=== PATIENT | female | born 1950 | race Two or more races ===

== ENCOUNTER 2023-05-20 06:14 | Inpatient (IN) | payer MEDICARE, MEDICAID ==
[~2023-05-20] VITALS: Ht 162.6 cm; Wt 86.2 kg
[2023-05-20 07:33] LABS: COVID19 ANTIGEN SOFIA FIA NEGATIVE (NEGATIVE)
[2023-05-20 07:34] LABS: Rapid Influenza A Negative (Negative); Rapid Influenza B Negative (Negative)
[2023-05-20 07:37] LABS: Basophils # (auto) 0.1 10 ^3/uL (0-0.2); Basophils % (auto) 0.7 % (0.0-2.0); Eosinophils # (auto) 0.2 10 ^3/uL (0-0.8); Eosinophils % (auto) 1.4 % (0.0-7.0); Hematocrit 35.8 % (36.0-46.0); Hemoglobin 11.8 g/dL (12.2-16.2); Lymphocytes # (auto) 2.1 10 ^3/uL (0.4-5.4); Lymphocytes % (auto) 17.1 % (10.0-50.0); Mean Corpuscular Hemoglobin 26.2 pg (28.0-32.0); Mean Corpuscular Hgb Conc. 32.9 g/dL (32.0-36.0); Mean Corpuscular Volume 79.8 fL (80.0-100.0); Monocytes # (auto) 0.5 10 ^3/uL (0-1.3); Monocytes % (auto) 4.3 % (0.0-12.0); Neutrophils # (auto) 9.5 10 ^3/uL (1.6-8.6); Neutrophils % (auto) 76.5 % (37.0-80.0); Red Blood Cells 4.49 10^6/uL (4.0-5.20); Red Cell Distribution Width 13.5 % (11.8-14.3); White Blood Cell 12.5 10^3/uL (4.4-10.8)
[2023-05-20 07:59] LABS: Alanine Aminotransferase 25 U/L (7-40); Albumin 4.8 g/dL (3.2-4.8); Alkaline Phosphatase 71 U/L (46-116); Anion Gap 7.7 (5-15); Aspartate Aminotransferase 15 U/L (13-40); BUN/Creatinine Ratio 12.3 (10.0-20.0); Blood Urea Nitrogen 17 mg/dL (9-23); Carbon Dioxide 23.3 mmol/L (20-30); Chloride 94 mmol/L (98-107); Glucose 136 mg/dL (74-106); Potassium 4.9 mmol/L (3.5-5.1); Sodium 125 mmol/L (136-145)
[2023-05-20 08:00] LABS: Bilirubin, Total 0.4 mg/dL (0.2-1.0); Total Protein 7.7 g/dL (5.7-8.2)
[2023-05-20 12:53] LABS: Urine Bacteria FEW /hpf (None Seen); Urine Blood Negative /uL (Negative); Urine Clarity Clear (Clear); Urine Hyaline Cast FEW /lpf (0 - 2); Urine Protein, UAD TRACE (Negative); Urine Specific Gravity 1.015 (1.001-1.035); Urine Urobilinogen Normal (Negative); Urine WBC 6 /hpf (0 - 5); Urine pH 5.5 (5.0-8.0)
[2023-05-20 12:58] LABS: Urine Color Yellow (Yellow)
[2023-05-20 13:06] VITALS: PULSE 94; RESP 30; O2SAT 94
[2023-05-20] MEDS ORDERED: PIPERACILLIN-TAZO 4.5GM 100 ML IV ONE (13:15)
[2023-05-20] MEDS ORDERED: VANCOMYCIN 1GM/250ML 250 ML IV ONE (13:15)
[2023-05-20] MEDS ORDERED: levoFLOXacin 750MG 150 ML IV ONE (13:30)
[2023-05-20] MEDS ORDERED: SODIUM CHLORIDE 0.9% 2,450 ML IV ONE (13:30)
[2023-05-20] MEDS ORDERED: ACETAMINOPHEN 325 MG TAB PO ONE (13:30)
[2023-05-20] MEDS ORDERED: VANCOMYCIN PER PHARMACY 0 MG IV SCH (13:45)
[2023-05-20] MEDS: SODIUM CHLORIDE 0.9% 1,000 ML IV SCH ×2 (14:15→22:51)
[2023-05-20] MEDS ORDERED: DOCUSATE SOD 100 MG CAP PO PRN (14:15)
[2023-05-20] MEDS ORDERED: DEXTROSE (50%) 50ML SYRG IV PRN (14:15)
[2023-05-20 14:47] LABS: Creatinine, Urine 77.28 mg/dL (30.0-125.0)
[2023-05-20] MEDS ORDERED: SERT-206 PO (15:35)
[2023-05-20] MEDS ORDERED: LORA-1105 PO (15:35)
[2023-05-20] MEDS ORDERED: HYDR50TA69 PO (15:35)
[2023-05-20 15:36] LABS: INR 3.45 (0.9-1.15); Partial Thromboplastin Time 44.9 SEC (24.5-34.5); Prothrombin Time 33.4 sec (9.3-11.8)
[2023-05-20] MEDS: InsuLIN REG 1unit/0.01ml Soln (100units/ml) SC SCH (18:00)
[2023-05-20] MEDS: ACCU-CHEK COMFORT CURVE STRIP VI SCH (18:00)
[2023-05-20] MEDS ORDERED: MEMA1CAP4 PO (20:16)
[2023-05-20] MEDS ORDERED: HYDR50TA32 PO (20:17)
[2023-05-20 21:01] VITALS: PULSE 95; RESP 22; O2SAT 95
[2023-05-20] MEDS: ONDANSETRON HCL 4 MG/2 ML VIAL IV PRN (23:35)
[2023-05-20] MEDS: MORPHINE SULFATE INJ 2 MG/ml SYRG IV PRN ×2 (23:36→23:44)
[2023-05-21] MEDS: ACCU-CHEK COMFORT CURVE STRIP VI SCH ×4 (00:26→21:16)
[2023-05-21] MEDS: InsuLIN REG 1unit/0.01ml Soln (100units/ml) SC SCH ×4 (00:29→21:32)
[2023-05-21 06:28] LABS: Eosinophils # (auto) 0.1 10 ^3/uL (0-0.8); Mean Corpuscular Hgb Conc. 32.1 g/dL (32.0-36.0); Monocytes # (auto) 0.5 10 ^3/uL (0-1.3)
[2023-05-21 06:29] LABS: Basophils # (auto) 0.1 10 ^3/uL (0-0.2); Basophils % (auto) 0.5 % (0.0-2.0); Eosinophils % (auto) 1.1 % (0.0-7.0); Hematocrit 32.5 % (36.0-46.0); Hemoglobin 10.4 g/dL (12.2-16.2); Lymphocytes # (auto) 1.3 10 ^3/uL (0.4-5.4); Lymphocytes % (auto) 12.6 % (10.0-50.0); Mean Corpuscular Hemoglobin 26.8 pg (28.0-32.0); Mean Corpuscular Volume 83.6 fL (80.0-100.0); Monocytes % (auto) 4.4 % (0.0-12.0); Neutrophils # (auto) 8.5 10 ^3/uL (1.6-8.6); Neutrophils % (auto) 81.4 % (37.0-80.0); Red Blood Cells 3.89 10^6/uL (4.0-5.20); Red Cell Distribution Width 14.1 % (11.8-14.3); White Blood Cell 10.4 10^3/uL (4.4-10.8)
[2023-05-21 06:40] LABS: INR 2.26 (0.9-1.15); Prothrombin Time 22.5 sec (9.3-11.8)
[2023-05-21 06:56] LABS: Alanine Aminotransferase 24 U/L (7-40); Albumin 3.9 g/dL (3.2-4.8); Alkaline Phosphatase 62 U/L (46-116); Anion Gap 6.6 (5-15); Aspartate Aminotransferase 23 U/L (13-40); BUN/Creatinine Ratio 5.5 (10.0-20.0); Calcium 8.9 mg/dL (8.7-10.4); Carbon Dioxide 18.4 mmol/L (20-30); Chloride 104 mmol/L (98-107); Glucose 151 mg/dL (74-106); Potassium 4.7 mmol/L (3.5-5.1); Sodium 129 mmol/L (136-145)
[2023-05-21 06:57] LABS: Bilirubin, Total 0.4 mg/dL (0.2-1.0); Total Protein 6.6 g/dL (5.7-8.2)
[2023-05-21 07:00] LABS: Blood Urea Nitrogen 6 mg/dL (9-23)
[2023-05-21] MEDS: SODIUM CHLORIDE 0.9% 1,000 ML IV SCH ×3 (07:02→21:16)
[2023-05-21 08:30] VITALS: PULSE 87; RESP 18; O2SAT 94
[2023-05-21] MEDS ORDERED: MEMA1CAP4 PO (09:00)
[2023-05-21] MEDS ORDERED: FLUT110A INH (09:00)
[2023-05-21] MEDS ORDERED: LORA2TAB89 PO (09:00)
[2023-05-21] MEDS ORDERED: SERT-160 PO (09:00)
[2023-05-21] MEDS ORDERED: ALBUAER3 IN (09:00)
[2023-05-21] MEDS ORDERED: DICY10CA PO (09:00)
[2023-05-21] MEDS ORDERED: ARIP1TAB7 PO (09:00)
[2023-05-21] MEDS ORDERED: FURO1TAB33 PO (09:00)
[2023-05-21] MEDS ORDERED: LORA-622 PO (09:00)
[2023-05-21] MEDS ORDERED: POTA10TA51 PO (09:00)
[2023-05-21] MEDS ORDERED: DEXL60CA4 PO (09:00)
[2023-05-21] MEDS ORDERED: HYDR50TA69 PO (09:00)
[2023-05-21] MEDS ORDERED: CALCIUM PO (09:00)
[2023-05-21] MEDS ORDERED: IRONTAB35 PO (09:00)
[2023-05-21] MEDS ORDERED: LEVO75TA6 PO (09:00)
[2023-05-21] MEDS ORDERED: PRAV20TA3 PO (09:00)
[2023-05-21] MEDS: levoFLOXacin 500MG 100 ML IV SCH (10:38)
[2023-05-21] MEDS: VANCOMYCIN 1GM/250ML 250 ML IV SCH (14:06)
[2023-05-21] MEDS ORDERED: WARFARIN SODIUM 2 MG TAB PO ONE (17:00)
[2023-05-21 20:15] VITALS: PULSE 102; RESP 20; O2SAT 95
[2023-05-21] MEDS: hydrOXYzine 25 MG TAB or CAP PO SCH (21:16)
[2023-05-21] MEDS: LORazepam 0.5 MG TAB PO SCH (21:17)
[2023-05-21] MEDS: SERTRALINE HCL 50 MG TAB PO SCH (21:17)
[2023-05-21] MEDS ORDERED: PATIENTS OWN MEDICATION (Hydroxyzine Hcl 1 TAB) PO SCH (22:00)
[2023-05-22 04:35] LABS: Basophils # (auto) 0.1 10 ^3/uL (0-0.2); Basophils % (auto) 0.7 % (0.0-2.0); Monocytes # (auto) 0.6 10 ^3/uL (0-1.3)
[2023-05-22 04:37] LABS: Eosinophils # (auto) 0.1 10 ^3/uL (0-0.8); Eosinophils % (auto) 1.2 % (0.0-7.0); Hematocrit 30.6 % (36.0-46.0); Hemoglobin 10.3 g/dL (12.2-16.2); Lymphocytes # (auto) 1.2 10 ^3/uL (0.4-5.4); Lymphocytes % (auto) 11.2 % (10.0-50.0); Mean Corpuscular Hemoglobin 27.2 pg (28.0-32.0); Mean Corpuscular Hgb Conc. 33.6 g/dL (32.0-36.0); Monocytes % (auto) 5.9 % (0.0-12.0); Neutrophils # (auto) 8.4 10 ^3/uL (1.6-8.6); Red Blood Cells 3.78 10^6/uL (4.0-5.20); Red Cell Distribution Width 13.8 % (11.8-14.3); White Blood Cell 10.4 10^3/uL (4.4-10.8)
[2023-05-22] MEDS: SODIUM CHLORIDE 0.9% 1,000 ML IV SCH ×4 (04:38→21:20)
[2023-05-22 04:53] LABS: Alanine Aminotransferase 88 U/L (7-40); Alkaline Phosphatase 75 U/L (46-116); Anion Gap 7.5 (5-15); Aspartate Aminotransferase 48 U/L (13-40); BUN/Creatinine Ratio 7.5 (10.0-20.0); Bilirubin, Total 0.4 mg/dL (0.2-1.0); Blood Urea Nitrogen 8 mg/dL (9-23); Calcium 8.7 mg/dL (8.5-10.1); Carbon Dioxide 21.5 mmol/L (20-30); Chloride 106 mmol/L (98-107); Glucose 156 mg/dL (74-106)
[2023-05-22 04:54] LABS: Total Protein 6.3 g/dL (5.7-8.2)
[2023-05-22 04:58] LABS: INR 2.91 (0.9-1.15); Partial Thromboplastin Time 43.1 SEC (24.5-34.5); Prothrombin Time 28.5 sec (9.3-11.8)
[2023-05-22 05:03] LABS: Sodium 135 mmol/L (136-145)
[2023-05-22] MEDS ORDERED: ACETAMINOPHEN 650 MG RECT SUPP PR ONE (05:30)
[2023-05-22] MEDS: LORazepam 0.5 MG TAB PO SCH ×2 (05:31→14:26)
[2023-05-22] MEDS: ACCU-CHEK COMFORT CURVE STRIP VI SCH ×4 (05:32→18:02)
[2023-05-22] MEDS: hydrOXYzine 25 MG TAB or CAP PO SCH ×2 (05:45→14:26)
[2023-05-22] MEDS: MORPHINE SULFATE INJ 2 MG/ml SYRG IV PRN ×2 (05:46→13:02)
[2023-05-22] MEDS: InsuLIN REG 1unit/0.01ml Soln (100units/ml) SC SCH ×4 (05:54→18:00)
[2023-05-22 08:26] VITALS: PULSE 95; RESP 18; O2SAT 98
[2023-05-22] MEDS: levoFLOXacin 500MG 100 ML IV SCH (09:25)
[2023-05-22] MEDS: BENAZEPRIL HCL 10 MG TAB PO SCH (10:11)
[2023-05-22] MEDS: FUROSEMIDE 20 MG TAB PO SCH (10:11)
[2023-05-22] MEDS: PRAVASTATIN SODIUM 20 MG TAB PO SCH (10:12)
[2023-05-22] MEDS: LEVOTHYROXINE SODIUM 50 MCG TAB PO SCH (10:12)
[2023-05-22] MEDS: SERTRALINE HCL 50 MG TAB PO SCH (10:18)
[2023-05-22] MEDS: ARIPIPRAZOLE 10 MG PO SCH (10:20)
[2023-05-22] MEDS: MEMANTINE HCL DONEPEZIL HCL PO SCH (10:21)
[2023-05-22] MEDS: VANCOMYCIN 1GM/250ML 250 ML IV SCH (10:26)
[2023-05-22] MEDS ORDERED: ACETAMINOPHEN 325 MG TAB PO ONE (15:22)
[2023-05-22] MEDS: ACETAMINOPHEN 325 MG TAB PO PRN ×2 (15:47→21:42)
[2023-05-22] MEDS ORDERED: WARFARIN SODIUM 1 MG TAB PO ONE (16:00)
[2023-05-23] VITALS (7 sets, daily range): BP systolic 111–147; BP diastolic 59–72; PULSE 84–97; RESP 17–20; TEMP 97.9–99.5; O2SAT 95–99
[2023-05-23] MEDS: ACCU-CHEK COMFORT CURVE STRIP VI SCH ×4 (01:57→17:09)
[2023-05-23] MEDS: InsuLIN REG 1unit/0.01ml Soln (100units/ml) SC SCH ×4 (01:58→17:09)
[2023-05-23] MEDS: SERTRALINE HCL 50 MG TAB PO SCH ×3 (02:16→21:58)
[2023-05-23] MEDS: LORazepam 0.5 MG TAB PO SCH ×4 (02:18→21:57)
[2023-05-23] MEDS: hydrOXYzine 25 MG TAB or CAP PO SCH ×4 (02:33→22:00)
[2023-05-23] MEDS: SODIUM CHLORIDE 0.9% 1,000 ML IV SCH ×2 (03:19→04:19)
[2023-05-23 07:05] LABS: Basophils # (auto) 0.1 10 ^3/uL (0-0.2); Eosinophils # (auto) 0.3 10 ^3/uL (0-0.8); Lymphocytes # (auto) 1.4 10 ^3/uL (0.4-5.4); Lymphocytes % (auto) 17.4 % (10.0-50.0); Neutrophils # (auto) 5.7 10 ^3/uL (1.6-8.6); Red Cell Distribution Width 13.8 % (11.8-14.3); White Blood Cell 7.9 10^3/uL (4.4-10.8)
[2023-05-23 07:07] LABS: Basophils % (auto) 1.2 % (0.0-2.0); Eosinophils % (auto) 3.8 % (0.0-7.0); Hematocrit 30.1 % (36.0-46.0); Hemoglobin 9.7 g/dL (12.2-16.2); Mean Corpuscular Hemoglobin 26.4 pg (28.0-32.0); Mean Corpuscular Hgb Conc. 32.3 g/dL (32.0-36.0); Mean Corpuscular Volume 81.6 fL (80.0-100.0); Monocytes # (auto) 0.4 10 ^3/uL (0-1.3); Monocytes % (auto) 5.7 % (0.0-12.0); Neutrophils % (auto) 71.9 % (37.0-80.0); Red Blood Cells 3.68 10^6/uL (4.0-5.20)
[2023-05-23 07:21] LABS: Partial Thromboplastin Time 44.7 SEC (24.5-34.5); Prothrombin Time 29.3 sec (9.3-11.8)
[2023-05-23] MEDS: ARIPIPRAZOLE 10 MG PO SCH (10:00)
[2023-05-23] MEDS: MEMANTINE HCL DONEPEZIL HCL PO SCH (10:00)
[2023-05-23] MEDS: PRAVASTATIN SODIUM 20 MG TAB PO SCH (10:39)
[2023-05-23] MEDS: FUROSEMIDE 20 MG TAB PO SCH (10:43)
[2023-05-23] MEDS: LEVOTHYROXINE SODIUM 50 MCG TAB PO SCH (10:43)
[2023-05-23] MEDS: BENAZEPRIL HCL 10 MG TAB PO SCH (10:44)
[2023-05-23] MEDS: levoFLOXacin 500MG 100 ML IV SCH (10:49)
[2023-05-23] MEDS: VANCOMYCIN 1GM/250ML 250 ML IV SCH (10:50)
[2023-05-23] MEDS ORDERED: WARF4TAB69 PO (11:38)
[2023-05-23] MEDS ORDERED: WARF-112 PO (11:38)
[2023-05-23] MEDS ORDERED: GLIP10TA9 PO (11:40)
[2023-05-23] MEDS ORDERED: SITA100T7 PO (11:40)
[2023-05-23] MEDS ORDERED: BENA40TA70 PO (11:40)
[2023-05-23] MEDS ORDERED: METF-371 PO (11:40)
[2023-05-23] MEDS ORDERED: PANTOPRAZOLE 40 MG TAB PO ONE (12:45)
[2023-05-23] MEDS: MORPHINE SULFATE INJ 2 MG/ml SYRG IV PRN (14:44)
[2023-05-23] MEDS: ACETAMINOPHEN 325 MG TAB PO PRN (16:05)
[2023-05-23] MEDS: PANTOPRAZOLE 40 MG TAB PO SCH (21:57)
[2023-05-24] VITALS (7 sets, daily range): BP systolic 110–157; BP diastolic 52–72; PULSE 52–93; RESP 10–20; TEMP 98.3–99.7; O2SAT 91–100
[2023-05-24] MEDS: InsuLIN REG 1unit/0.01ml Soln (100units/ml) SC SCH ×5 (01:41→23:57)
[2023-05-24] MEDS: ACCU-CHEK COMFORT CURVE STRIP VI SCH ×5 (01:41→23:54)
[2023-05-24] MEDS: hydrOXYzine 25 MG TAB or CAP PO SCH ×3 (05:50→21:19)
[2023-05-24] MEDS: LORazepam 0.5 MG TAB PO SCH ×3 (05:50→21:17)
[2023-05-24 07:12] LABS: INR 1.96 (0.9-1.15); Partial Thromboplastin Time 41.3 SEC (24.5-34.5); Prothrombin Time 19.7 sec (9.3-11.8)
[2023-05-24 07:17] LABS: Basophils # (auto) 0.1 10 ^3/uL (0-0.2); Basophils % (auto) 0.8 % (0.0-2.0); Eosinophils # (auto) 0.3 10 ^3/uL (0-0.8); Eosinophils % (auto) 3.5 % (0.0-7.0); Hematocrit 30.9 % (36.0-46.0); Hemoglobin 10.1 g/dL (12.2-16.2); Lymphocytes # (auto) 1.3 10 ^3/uL (0.4-5.4); Lymphocytes % (auto) 13.4 % (10.0-50.0); Mean Corpuscular Hemoglobin 25.9 pg (28.0-32.0); Mean Corpuscular Hgb Conc. 32.6 g/dL (32.0-36.0); Mean Corpuscular Volume 79.5 fL (80.0-100.0); Monocytes # (auto) 0.6 10 ^3/uL (0-1.3); Monocytes % (auto) 5.9 % (0.0-12.0); Neutrophils # (auto) 7.4 10 ^3/uL (1.6-8.6); Neutrophils % (auto) 76.4 % (37.0-80.0); Red Blood Cells 3.89 10^6/uL (4.0-5.20); Red Cell Distribution Width 13.4 % (11.8-14.3); White Blood Cell 9.7 10^3/uL (4.4-10.8)
[2023-05-24] MEDS: BENAZEPRIL HCL 10 MG TAB PO SCH (08:57)
[2023-05-24] MEDS: ACETAMINOPHEN 325 MG TAB PO PRN ×2 (08:57→17:20)
[2023-05-24] MEDS: SERTRALINE HCL 50 MG TAB PO SCH ×2 (08:58→21:17)
[2023-05-24] MEDS: LEVOTHYROXINE SODIUM 50 MCG TAB PO SCH (08:58)
[2023-05-24] MEDS: PRAVASTATIN SODIUM 20 MG TAB PO SCH (08:58)
[2023-05-24] MEDS: PANTOPRAZOLE 40 MG TAB PO SCH ×2 (08:58→21:18)
[2023-05-24] MEDS: MEMANTINE HCL DONEPEZIL HCL PO SCH (08:59)
[2023-05-24] MEDS: ARIPIPRAZOLE 10 MG PO SCH (08:59)
[2023-05-24] MEDS: FUROSEMIDE 20 MG TAB PO SCH (08:59)
[2023-05-24] MEDS: SODIUM CHLORIDE 0.9% 1,000 ML IV SCH ×2 (09:09→18:33)
[2023-05-24] MEDS: levoFLOXacin 500MG 100 ML IV SCH (09:10)
[2023-05-24] MEDS ORDERED: WARFARIN SODIUM 2 MG TAB PO ONE (17:00)
[2023-05-24] MEDS ORDERED: CIPROFLOXACIN HCL 500 MG TAB PO SCH (22:00)
[2023-05-25 05:00] VITALS: BP 147/66; PULSE 90; RESP 18; TEMP 98.8; O2SAT 98
[2023-05-25] MEDS: ACETAMINOPHEN 325 MG TAB PO PRN ×2 (06:29→12:56)
[2023-05-25] MEDS: hydrOXYzine 25 MG TAB or CAP PO SCH ×2 (06:29→15:22)
[2023-05-25] MEDS: SODIUM CHLORIDE 0.9% 1,000 ML IV SCH ×3 (06:29→16:00)
[2023-05-25] MEDS: LORazepam 0.5 MG TAB PO SCH ×2 (06:30→15:23)
[2023-05-25] MEDS: ACCU-CHEK COMFORT CURVE STRIP VI SCH ×2 (06:30→12:56)
[2023-05-25] MEDS: InsuLIN REG 1unit/0.01ml Soln (100units/ml) SC SCH ×2 (06:38→12:56)
[2023-05-25 07:04] LABS: INR 1.49 (0.9-1.15); Partial Thromboplastin Time 36.2 SEC (24.5-34.5); Prothrombin Time 15.2 sec (9.3-11.8)
[2023-05-25 08:00] VITALS: BP 155/60; PULSE 84; PULSE 87; RESP 18; TEMP 98.3; O2SAT 97
[2023-05-25] MEDS: PRAVASTATIN SODIUM 20 MG TAB PO SCH (09:00)
[2023-05-25] MEDS: MEMANTINE HCL DONEPEZIL HCL PO SCH (09:00)
[2023-05-25] MEDS: ARIPIPRAZOLE 10 MG PO SCH (09:00)
[2023-05-25] MEDS: SERTRALINE HCL 50 MG TAB PO SCH (09:01)
[2023-05-25] MEDS: BENAZEPRIL HCL 10 MG TAB PO SCH (09:01)
[2023-05-25] MEDS: PANTOPRAZOLE 40 MG TAB PO SCH (09:01)
[2023-05-25] MEDS: FUROSEMIDE 20 MG TAB PO SCH (09:02)
[2023-05-25] MEDS: LEVOTHYROXINE SODIUM 50 MCG TAB PO SCH (09:02)
[2023-05-25] MEDS ORDERED: levoFLOXacin 500MG 100 ML IV SCH (10:00)
[2023-05-25] MEDS: ONDANSETRON HCL 4 MG/2 ML VIAL IV PRN (10:43)
[2023-05-25 12:00] VITALS: BP 142/61; PULSE 86; RESP 18; TEMP 98.8; O2SAT 96
[2023-05-25 12:10] LABS: COVID19 ANTIGEN SOFIA FIA NEGATIVE (NEGATIVE)
[2023-05-25 15:53] VITALS: BP 143/67; PULSE 93; RESP 18; TEMP 98.3; O2SAT 97
[2023-05-25 16:00] VITALS: BP 143/67; PULSE 93; RESP 18; TEMP 98.3; O2SAT 97
[2023-05-25] MEDS ORDERED: WARFARIN SODIUM 2 MG TAB PO ONE (17:00)
== END 2023-05-25 17:35 | DRG 871 ==
LOC: EDUNIT# 06:14 → EDBD 06:14 → ER 06:14 → TELE 14:18 → TELE-CENTR 05-23 10:14
PROVIDERS: ADMIT Nurse Practitioner Family; ATTEND Family Medicine
DX: A41.9 Sepsis, unspecified organism (principal); E43 Unspecified severe protein-calorie malnutrition; G93.41 Metabolic encephalopathy; N17.0 Acute kidney failure with tubular necrosis; E87.21 Acute metabolic acidosis; E87.1 Hypo-osmolality and hyponatremia; N39.0 Urinary tract infection, site not specified; D64.9 Anemia, unspecified; Z20.822 Contact with and (suspected) exposure to COVID-19; Z96.659 Presence of unspecified artificial knee joint; F03.90 Unspecified dementia, unspecified severity, without behavioral disturbance, psychotic disturbance, mood disturbance, and anxiety; E03.9 Hypothyroidism, unspecified; I10 Essential (primary) hypertension; E11.9 Type 2 diabetes mellitus without complications; E78.5 Hyperlipidemia, unspecified; J45.909 Unspecified asthma, uncomplicated; G89.29 Other chronic pain; Z79.01 Long term (current) use of anticoagulants; Z86.711 Personal history of pulmonary embolism; Z88.0 Allergy status to penicillin; Z88.3 Allergy status to other anti-infective agents; Z90.710 Acquired absence of both cervix and uterus; Z68.32 Body mass index [BMI] 32.0-32.9, adult
CPT/HCPCS: 36415; 70450; 71045; 72131; 74176; 80053; 80202; 81001; 82570; 82962; 83605; 83880; 83930; 83935; 84300; 84443; 84484; 85025; 85610; 85730; 87040; 87086; 87426; 87804; 96365; 97163; 99291; G0378; J1815; J1956; J2405

== ENCOUNTER 2023-10-06 07:38 | Inpatient (IN) | payer MEDICARE, MEDICAID ==
[~2023-10-06] VITALS: Ht 160 cm; Wt 75.0 kg
[~2023-10-06 07:38] MED LIST: ALBUAER3 IN; ARIP1TAB7 PO; BENA40TA70 PO; CALCIUM PO; DEXL60CA4 PO; DICY10CA PO; FLUT110A INH; FURO1TAB33 PO; GLIP10TA9 PO; HYDR50TA32 PO; HYDR50TA69 PO; IRONTAB35 PO; LEVO75TA6 PO; LORA-1105 PO; LORA-622 PO; LORA2TAB89 PO; MEMA1CAP4 PO; METF-371 PO; POTA10TA51 PO; PRAV20TA3 PO; SERT-160 PO; SERT-206 PO; SITA100T7 PO; WARF-112 PO; WARF4TAB69 PO
[2023-10-06 08:13] LABS: Basophils # (auto) 0 10 ^3/uL (0-0.2); Basophils % (auto) 0.3 % (0.0-2.0); Eosinophils # (auto) 0 10 ^3/uL (0-0.8); Lymphocytes # (auto) 1.1 10 ^3/uL (0.4-5.4); White Blood Cell 6.2 10^3/uL (4.4-10.8)
[2023-10-06 08:15] LABS: Eosinophils % (auto) 0.4 % (0.0-7.0); Hematocrit 27.6 % (36.0-46.0); Lymphocytes % (auto) 17.2 % (10.0-50.0); Mean Corpuscular Hemoglobin 26.7 pg (28.0-32.0); Mean Corpuscular Hgb Conc. 32.5 g/dL (32.0-36.0); Mean Corpuscular Volume 82.3 fL (80.0-100.0); Monocytes # (auto) 0.4 10 ^3/uL (0-1.3); Monocytes % (auto) 5.8 % (0.0-12.0); Neutrophils # (auto) 4.7 10 ^3/uL (1.6-8.6); Neutrophils % (auto) 76.3 % (37.0-80.0); Red Blood Cells 3.36 10^6/uL (4.0-5.20); Red Cell Distribution Width 17.1 % (11.8-14.3)
[2023-10-06 08:36] LABS: Anion Gap 6 (5-15); Calcium 9.4 mg/dL (8.5-10.1); Carbon Dioxide 27 mmol/L (20-30); Chloride 102 mmol/L (98-107); Sodium 135 mmol/L (136-145)
[2023-10-06 08:41] LABS: BUN/Creatinine Ratio 23.4 (10.0-20.0); Blood Urea Nitrogen 41 mg/dL (9-23); Glucose 73 mg/dL (74-106)
[2023-10-06 09:07] LABS: Urine Bacteria FEW /hpf (None Seen); Urine Blood Negative /uL (Negative); Urine Clarity Clear (Clear); Urine Color Colorless (Yellow); Urine Protein, UAD Negative (Negative); Urine Specific Gravity 1.008 (1.001-1.035); Urine Urobilinogen Normal (Negative); Urine WBC 4 /hpf (0 - 5); Urine pH 5.5 (5.0-8.0)
[2023-10-06] MEDS ORDERED: DEXTROSE 50% SYRINGE 50 ML IV ONE (09:12)
[2023-10-06] MEDS ORDERED: DEXTROSE 10% 1,000 ML IV ONE ×2 (09:15→11:00)
[2023-10-06] MEDS ORDERED: DEXTROSE (50%) 50ML SYRG IV ONE (09:15)
[2023-10-06 09:22] VITALS: PULSE 79; RESP 21; O2SAT 94
[2023-10-06] MEDS ORDERED: NITROGLYCERIN 0.4 MG SL TAB SL PRN (10:45)
[2023-10-06] MEDS ORDERED: ACETAMINOPHEN 325 MG TAB PO PRN (10:45)
[2023-10-06] MEDS ORDERED: MORPHINE SULFATE INJ 2 MG/ml SYRG IV PRN (10:45)
[2023-10-06] MEDS ORDERED: cefTRIAXone 1GM/50ML D5W 50 ML IV ONE (11:00)
[2023-10-06] MEDS ORDERED: DEXTROSE 10% 1,000 ML IV SCH (11:00)
[2023-10-06] MEDS ORDERED: SODIUM CHLORIDE 0.9% 1,000 ML IV ONE (11:00)
[2023-10-06] MEDS ORDERED: ALBUTEROL SULF 2.5 MG/0.5ML(0.5%) NEB SOLN NEB PRN (11:15)
[2023-10-06 12:40] LABS: Protein, Urine 19.1 mg/dL (0.0-11.9)
[2023-10-06 12:43] LABS: Creatinine, Urine 38.6 mg/dL (30.0-125.0)
[2023-10-06 12:44] LABS: Platelet Estimate Adequate
[2023-10-06 12:52] LABS: Prothrombin Time 43.9 sec (9.3-11.8)
[2023-10-06 12:54] LABS: INR 4.62 (0.9-1.15)
[2023-10-06 13:08] LABS: Triglycerides 75 mg/dL (< 150)
[2023-10-06 13:09] LABS: LDL Cholesterol 49 mg/dL (< 100)
[2023-10-06 13:10] LABS: Cholesterol 121 mg/dL (< 200); HDL Cholesterol 46 mg/dL (40-59)
[2023-10-06 14:00] VITALS: BP 115/58; PULSE 82; RESP 18; TEMP 98.6; O2SAT 97
[2023-10-06 16:28] VITALS: PULSE 70; RESP 19; O2SAT 97
[2023-10-06 17:00] VITALS: BP 139/50; PULSE 85; RESP 22; TEMP 98.8; O2SAT 96
[2023-10-06] MEDS ORDERED: DEXTROSE (50%) 50ML SYRG IV PRN (17:15)
[2023-10-06] MEDS: SOD CHL 0.45% 1,000 ML IV SCH (18:30)
[2023-10-06] MEDS: ACCU-CHEK COMFORT CURVE STRIP VI SCH (19:54)
[2023-10-06 20:00] VITALS: PULSE 86; PULSE 87; RESP 20; O2SAT 96
[2023-10-06] MEDS: InsuLIN REG 1unit/0.01ml Soln (100units/ml) SC SCH (20:01)
[2023-10-06 22:00] VITALS: BP 138/60; PULSE 87; RESP 20; TEMP 98.3; O2SAT 96
[2023-10-07] VITALS (7 sets, daily range): BP systolic 122–141; BP diastolic 56–106; PULSE 73–88; RESP 16–20; TEMP 97.5–98.5; O2SAT 97–99
[2023-10-07] MEDS: InsuLIN REG 1unit/0.01ml Soln (100units/ml) SC SCH ×6 (04:00→20:41)
[2023-10-07] MEDS: ACCU-CHEK COMFORT CURVE STRIP VI SCH ×6 (04:26→20:41)
[2023-10-07] MEDS: SOD CHL 0.45% 1,000 ML IV SCH ×3 (04:30→08:23)
[2023-10-07] MEDS: DEXTROSE 10% 1,000 ML IV SCH ×2 (04:52→15:00)
[2023-10-07 07:37] LABS: Basophils # (auto) 0 10 ^3/uL (0-0.2); Basophils % (auto) 0.3 % (0.0-2.0); Eosinophils # (auto) 0.2 10 ^3/uL (0-0.8); Hemoglobin 9.1 g/dL (12.2-16.2); Lymphocytes # (auto) 1.7 10 ^3/uL (0.4-5.4); Mean Corpuscular Hemoglobin 26.7 pg (28.0-32.0)
[2023-10-07 07:42] LABS: Eosinophils % (auto) 3.3 % (0.0-7.0); Lymphocytes % (auto) 28.2 % (10.0-50.0); Mean Corpuscular Hgb Conc. 32.4 g/dL (32.0-36.0); Mean Corpuscular Volume 82.4 fL (80.0-100.0); Monocytes # (auto) 0.3 10 ^3/uL (0-1.3); Monocytes % (auto) 5.6 % (0.0-12.0); Neutrophils # (auto) 3.9 10 ^3/uL (1.6-8.6); Neutrophils % (auto) 62.6 % (37.0-80.0); Red Blood Cells 3.41 10^6/uL (4.0-5.20); Red Cell Distribution Width 17.3 % (11.8-14.3); White Blood Cell 6.2 10^3/uL (4.4-10.8)
[2023-10-07 07:49] LABS: Alanine Aminotransferase 16 U/L (7-40); Albumin 4.1 g/dL (3.2-4.8); Alkaline Phosphatase 109 U/L (46-116); Anion Gap 7 (5-15); Aspartate Aminotransferase 25 U/L (13-40); BUN/Creatinine Ratio 14.7 (10.0-20.0); Blood Urea Nitrogen 20 mg/dL (9-23); Calcium 9.5 mg/dL (8.5-10.1); Carbon Dioxide 25 mmol/L (20-30); Chloride 102 mmol/L (98-107); Glucose 138 mg/dL (74-106); Potassium 4.8 mmol/L (3.5-5.1); Sodium 134 mmol/L (136-145)
[2023-10-07 07:50] LABS: Bilirubin, Total 0.3 mg/dL (0.2-1.0); Total Protein 7.5 g/dL (5.7-8.2)
[2023-10-07] MEDS ORDERED: cefTRIAXone 1GM/50ML D5W 50 ML IV SCH (09:00)
[2023-10-07] MEDS ORDERED: ENOXAPARIN SOD 40 MG/0.4 ML SYRINGE SC SCH (10:00)
[2023-10-07] MEDS ORDERED: LEVOTHYROXINE SODIUM 25 MCG TAB PO ONE (13:45)
[2023-10-07] MEDS: FERROUS SULFATE 325mg EC TAB PO SCH ×2 (14:45→22:18)
[2023-10-07] MEDS ORDERED: LORazepam 0.5 MG TAB PO ONE (14:45)
[2023-10-07 15:22] LABS: Prothrombin Time 39.5 sec (9.3-11.8)
[2023-10-07 15:25] LABS: INR 4.13 (0.9-1.15)
[2023-10-07] MEDS: CALCIUM W/VIT D (600MG/400IU) TAB PO SCH (18:51)
[2023-10-07] MEDS: metFORMIN HYDROCHLORIDE 500 MG TAB PO SCH (18:52)
[2023-10-07] MEDS: DICYCLOMINE HCL 10 MG CAP PO SCH ×2 (18:55→22:09)
[2023-10-07] MEDS ORDERED: PRAVASTATIN SODIUM 20 MG TAB PO SCH ×2 (22:00)
[2023-10-07] MEDS: TOLTERODINE TARTRATE 1 MG TAB PO SCH (22:09)
[2023-10-08] VITALS (7 sets, daily range): BP systolic 136–139; BP diastolic 68–73; PULSE 72–100; RESP 20; TEMP 98.1–98.2; O2SAT 97–100
[2023-10-08] MEDS: ACCU-CHEK COMFORT CURVE STRIP VI SCH ×5 (00:28→16:47)
[2023-10-08] MEDS: InsuLIN REG 1unit/0.01ml Soln (100units/ml) SC SCH ×5 (00:29→16:54)
[2023-10-08 06:22] LABS: INR 3.1 (0.9-1.15); Prothrombin Time 30.2 sec (9.3-11.8)
[2023-10-08] MEDS: FERROUS SULFATE 325mg EC TAB PO SCH ×2 (06:29→14:40)
[2023-10-08] MEDS: DICYCLOMINE HCL 10 MG CAP PO SCH ×2 (06:33→12:47)
[2023-10-08] MEDS ORDERED: LEVOTHYROXINE SODIUM 50 MCG TAB PO SCH (07:00)
[2023-10-08] MEDS ORDERED: LEVOTHYROXINE SODIUM 25 MCG TAB PO SCH (07:00)
[2023-10-08] MEDS: metFORMIN HYDROCHLORIDE 500 MG TAB PO SCH (08:17)
[2023-10-08] MEDS: CALCIUM W/VIT D (600MG/400IU) TAB PO SCH (08:17)
[2023-10-08] MEDS: SOD CHL 0.45% 1,000 ML IV SCH ×5 (08:35→11:29)
[2023-10-08] MEDS ORDERED: ABILIFY 10 MG PO SCH (10:00)
[2023-10-08] MEDS ORDERED: BENAZEPRIL HCL 10 MG TAB PO SCH (10:00)
[2023-10-08] MEDS ORDERED: LORATADINE 10 MG TAB PO SCH (10:00)
[2023-10-08] MEDS ORDERED: POTASSIUM CHL 10 Meq TABLET PO SCH (10:00)
[2023-10-08] MEDS ORDERED: SERTRALINE HCL 50 MG TAB PO SCH (10:00)
[2023-10-08] MEDS ORDERED: FUROSEMIDE 20 MG TAB PO SCH (10:00)
[2023-10-08] MEDS ORDERED: LORazepam 0.5 MG TAB PO ONE (10:00)
[2023-10-08] MEDS: TOLTERODINE TARTRATE 1 MG TAB PO SCH (10:18)
== END 2023-10-08 17:21 | disposition home or self-care (01) | DRG 640 ==
LOC: EDBD 07:38 → ER 07:38 → TELE 10:40 → TELE-CENTR 16:30
PROVIDERS: ADMIT Nurse Practitioner Family; ATTEND Nurse Practitioner Family
DX: E86.0 Dehydration (principal); N17.0 Acute kidney failure with tubular necrosis; N30.00 Acute cystitis without hematuria; J96.10 Chronic respiratory failure, unspecified whether with hypoxia or hypercapnia; E11.649 Type 2 diabetes mellitus with hypoglycemia without coma; D64.9 Anemia, unspecified; E03.9 Hypothyroidism, unspecified; E11.22 Type 2 diabetes mellitus with diabetic chronic kidney disease; E66.01 Morbid (severe) obesity due to excess calories; E78.5 Hyperlipidemia, unspecified; Z96.659 Presence of unspecified artificial knee joint; F03.90 Unspecified dementia, unspecified severity, without behavioral disturbance, psychotic disturbance, mood disturbance, and anxiety; G89.29 Other chronic pain; I12.9 Hypertensive chronic kidney disease with stage 1 through stage 4 chronic kidney disease, or unspecified chronic kidney disease; J45.909 Unspecified asthma, uncomplicated; N18.31 Chronic kidney disease, stage 3a; Z79.84 Long term (current) use of oral hypoglycemic drugs; Z86.711 Personal history of pulmonary embolism; Z88.0 Allergy status to penicillin; Z88.3 Allergy status to other anti-infective agents; Z90.710 Acquired absence of both cervix and uterus; Z88.1 Allergy status to other antibiotic agents; Z71.3 Dietary counseling and surveillance; Z68.35 Body mass index [BMI] 35.0-35.9, adult
CPT/HCPCS: 36415; 71045; 80048; 80053; 80061; 81001; 82570; 82962; 83036; 83930; 84156; 84300; 84443; 84484; 85025; 85610; 87086; 87088; 87186; 96361; 96374; 99291; G0378; J1815